=== PATIENT | male | born 2000 | race Caucasian/White ===

== ENCOUNTER 2023-07-07 08:41 | Emergency (ER) | payer SELFPAY ==
[~2023-07-07] VITALS: Ht 188 cm; Wt 68.2 kg
[2023-07-07] MEDS ORDERED: NS 1,000 ML IV ONE (09:00)
[2023-07-07 09:29] LABS: BASO % 0.4 % (0.0-1.0); EOS # 0.2 10^3/uL (0.0-0.5); EOS % 2.5 % (0.0-3.0); HEMATOCRIT 25.1 % (42.0-52.0); HEMOGLOBIN 8.6 g/dl (13.5-17.5); LYMPH % 14.1 % (24.0-44.0); MEAN CORPUSCULAR HEMOGLOBIN 30.6 pg (27.0-33.0); MEAN CORPUSCULAR HGB CONC 34.3 g/dl (32.0-36.5); MEAN CORPUSCULAR VOLUME 89.3 fl (80.0-96.0); MONO # 0.7 10^3/uL (0.0-0.8); MONO % 9.7 % (2.0-8.0); NEUTROPHILS # 5.2 10^3/uL (1.5-8.5); PLATELET COUNT, AUTOMATED 156 10^3/uL (150-450); RED BLOOD COUNT 2.81 10^6/uL (4.30-6.10); WHITE BLOOD COUNT 7.2 10^3/uL (4.0-10.0)
[2023-07-07] MEDS ORDERED: GABA-284 PO (09:34)
[2023-07-07] MEDS ORDERED: OXYC-517 PO (09:34)
[2023-07-07] MEDS ORDERED: METH-1164 PO (09:34)
[2023-07-07] MEDS ORDERED: ACET-907 PO (09:34)
[2023-07-07] MEDS ORDERED: DOCU100C17 PO (09:34)
[2023-07-07 09:51] LABS: BLOOD UREA NITROGEN 9 MG/DL (9-23); CALCIUM LEVEL 7.9 MG/DL (8.5-10.1); CARBON DIOXIDE LEVEL 27 MMOL/L (20-31); CHLORIDE LEVEL 104 MMOL/L (98-107); CREATININE FOR GFR 0.95 MG/DL (0.70-1.30); GLOMERULAR FILTRATION RATE > 60.0 (>60); GLUCOSE, FASTING 117 MG/DL (60-100); POTASSIUM SERUM 4.3 MMOL/L (3.5-5.1); SODIUM LEVEL 138 MMOL/L (136-145)
[2023-07-07] MEDS ORDERED: ISOVUE-370 76% 100ML VIAL As Ordered ONE (10:03)
[2023-07-07 12:26] LABS: HEMATOCRIT 23.2 % (42.0-52.0); MEAN CORPUSCULAR HEMOGLOBIN 30.9 pg (27.0-33.0); MEAN CORPUSCULAR HGB CONC 34.5 g/dl (32.0-36.5); MEAN CORPUSCULAR VOLUME 89.6 fl (80.0-96.0); PLATELET COUNT, AUTOMATED 143 10^3/uL (150-450); RED BLOOD COUNT 2.59 10^6/uL (4.30-6.10); WHITE BLOOD COUNT 4.9 10^3/uL (4.0-10.0)
[2023-07-07 13:24] VITALS: BP 101/57; TEMP 99.5; O2SAT 99
[2023-07-07 13:39] VITALS: BP 104/56; TEMP 99.3; O2SAT 96
[2023-07-07] MEDS ORDERED: ONDANSETRON 4MG 2ML VIAL IV ONE (13:45)
[2023-07-07] MEDS ORDERED: NS 1,000 ML IV SCH (13:45)
[2023-07-07] MEDS ORDERED: MORPHINE 4 MG/ML 1ML VIAL IV PRN (13:45)
[2023-07-07 14:38] VITALS: BP 106/58; TEMP 99.9; O2SAT 98
[2023-07-07 15:16] VITALS: BP 107/59; TEMP 100; O2SAT 99
[2023-07-07 15:52] VITALS: BP 110/67; TEMP 100; O2SAT 97
== END 2023-07-07 15:56 | disposition short-term general hospital (02) ==
LOC: M ED 08:41
DX: M96.830 Postprocedural hemorrhage of a musculoskeletal structure following a musculoskeletal system procedure (principal); Z79.899 Other long term (current) drug therapy
CPT/HCPCS: 36430; 73706; 80048; 85025; 85027; 86850; 86900; 86901; 86920; 87635; 93005; 96361; 96374; 96375; 99285; J2405; P9016; Q9967